=== PATIENT | male | born 1965 | race Two or more races ===

== ENCOUNTER 2022-01-26 09:55 | Emergency (ER) | payer OTHER ==
[~2022-01-26] VITALS: Ht 167.6 cm; Wt 97.5 kg
== END 2022-01-26 14:16 | disposition home or self-care (01) ==
LOC: ER 09:55
DX: M54.9 Dorsalgia, unspecified (principal)

== ENCOUNTER 2022-11-01 09:53 | Outpatient (CLI) | payer OTHER | END 2022-11-01 09:55 | disposition home or self-care (01) | LOC: LAB 09:53 | PROVIDERS: ATTEND Family Medicine Adult Medicine | DX: R73.03 Prediabetes (principal); E78.9 Disorder of lipoprotein metabolism, unspecified; E66.9 Obesity, unspecified; Z13.9 Encounter for screening, unspecified; S22.31XA Fracture of one rib, right side, initial encounter for closed fracture ==

== ENCOUNTER → 2023-08-22 09:59 | Outpatient (CLI) | payer OTHER ==
[2023-08-22 11:32] LABS: ALBUMIN 3.8 gm/dL (3.4-5.0); BILIRUBIN TOTAL 0.85 mg/dL (0.3-1.2); CALCIUM 9.3 mg/dL (8.5-10.1); CREATININE SERUM 0.94 mg/dL (0.70-1.30); GFR 82.72; GLOBULINA 3.5 G/DL (2.4-3.5); POTASSIUM 4.53 mEq/L (3.5-5.1); PROSTATIC SPECIFIC ANTIGEN 1.09 NG/ML (0.010-4.00); TOTAL PROTEIN 7.3 gm/dL (6.4-8.2)
== END | disposition home or self-care (01) ==
LOC: LAB 09:59
PROVIDERS: ATTEND Family Medicine Adult Medicine
DX: Z12.11 Encounter for screening for malignant neoplasm of colon (principal); Z12.5 Encounter for screening for malignant neoplasm of prostate; R73.03 Prediabetes; E78.9 Disorder of lipoprotein metabolism, unspecified